=== PATIENT | female | born 1985 | race Two or more races ===

== ENCOUNTER 2023-10-27 16:53 | Inpatient (IN) | payer OTHER ==
[~2023-10-27] VITALS: Ht 152.4 cm; Wt 65.8 kg
[~2023-10-27 16:53] MED LIST: N
[2023-10-27] MEDS ORDERED: 0.9 % SODIUM CHLORIDE 1,000 ML IV STA (17:33)
[2023-10-27] MEDS ORDERED: BARIUM SULFATE 450 ML ORAL.SUSP PO ONE (17:38)
[2023-10-27] MEDS ORDERED: KETOROLAC TROMETHAMINE 30 MG VIAL ONE (17:38)
[2023-10-27] MEDS ORDERED: KETOROLAC TROMETHAMINE 30 MG VIAL IV ONE (17:45)
[2023-10-27 17:59] LABS: HEMATOCRIT 35.7 % (36.0-45.00); HEMOGLOBIN 11.6 g/dL (12.0-15.00); MEAN CELL VOLUME 81.2 fL (80.00-100.00); MEAN CORPUSCULAR HEMOGLOBIN 26.4 pg (27.00-32.0); MEAN CORPUSCULAR HGB CONC 32.5 g/dl (32.0-36.0); PLATELET COUNT 397 K/uL (150-450); RED CELL DISTRIBUTION WIDTH 13.2 % (11.5-14.5)
[2023-10-27 18:40] LABS: CALCIUM 9.3 mg/dL (8.5-10.1); CREATININE SERUM 0.64 mg/dL (0.55-1.02); GFR 102.78; POTASSIUM 3.27 mEq/L (3.5-5.1)
[2023-10-27 19:33] LABS: URINE APPEARANCE Cloudy; URINE BILIRRUBIN Negative (NEGATIVE); URINE BLOOD Trace; URINE COLOR Dark Yellow; URINE GLUCOSE Negative (NEGATIVE); URINE LEUKOCYTE Negative; URINE NITRATE Negative; URINE PROTEIN 30 (NEGATIVE)
[2023-10-27 19:36] LABS: URINE BACTERIA 5640.9 uL (0.0-1933); URINE EPITHELIAL CELLS 63.6 uL (0.0-38.8); URINE RBC 76.1 uL (0.0-20.8); URINE WBC 25.5 uL (0.0-23.2)
[2023-10-27 20:03] LABS: URINE CAST 1.06 uL (0.0-1.40); URINE KETONE >=160 (NEGATIVE)
[2023-10-27 20:04] LABS: URINE CRYSTALS FEW /HPF; URINE MUCUS HEAVY
[2023-10-27] MEDS ORDERED: PIPERACILLIN/TAZOBACTAM SODIUM 3.375 GM VIAL IV ONE ×3 (22:15→23:45)
[2023-10-27] MEDS ORDERED: MORPHINE SULFATE 4 MG/ML CARTRIDGE IV PRN (22:45)
[2023-10-27] MEDS ORDERED: ONDANSETRON HCL 4 MG in 0.9 % SODIUM CHLORIDE 50 ML IV PRN (22:45)
[2023-10-27] MEDS ORDERED: MORPHINE SULFATE 4 MG/ML CARTRIDGE IV ONE (22:45)
[2023-10-27] MEDS ORDERED: 0.9 % SODIUM CHLORIDE 1,000 ML IV SCH (22:45)
[2023-10-27] MEDS ORDERED: ACETAMINOPHEN 500 MG GEL..CAP PO PRN (22:45)
[2023-10-28] MEDS ORDERED: PIPERACILLIN/TAZOBACTAM SODIUM 3.375 GM in DEXTROSE 5 % IN WATER 100 ML IV SCH
[2023-10-28 01:05] LABS: INR 1.09; PARTIAL THROMBOPLASTIN TIME 31.2 SECONDS (22.0-34.0); PROTHROMBIN TIME 11.8 SECONDS (9.0-11.5)
[2023-10-28] MEDS ORDERED: PIPERACILLIN/TAZOBACTAM SODIUM 3.375 GM VIAL IV ONE (04:52)
[2023-10-28 08:04] VITALS: BP 101/71; O2SAT 100
[2023-10-28] MEDS ORDERED: FAMOTIDINE/PF 20 MG/2 ML VIAL ONE (08:30)
[2023-10-28] MEDS ORDERED: FAMOTIDINE/PF 20 MG in 0.9 % SODIUM CHLORIDE 8 ML IV PUSH SCH (09:00)
[2023-10-28] MEDS ORDERED: CEFAZOLIN SODIUM 1,000 MG VIAL IV ONE (12:45)
[2023-10-28] MEDS ORDERED: BUPIVACAINE HCL 30 ML VIAL IJ ONE (12:45)
[2023-10-28] MEDS ORDERED: MORPHINE SULFATE 4 MG/ML VIAL IV ONE (14:20)
[2023-10-28] MEDS ORDERED: POTASSIUM CHLORIDE 20MEQ/100ML H2O PB IV NR (15:30)
[2023-10-28 23:05] VITALS: BP 105/63; O2SAT 98
[2023-10-29 01:34] VITALS: BP 95/62
[2023-10-29 08:20] LABS: HEMATOCRIT 32.8 % (36.0-45.00); HEMOGLOBIN 10.9 g/dL (12.0-15.00); MEAN CELL VOLUME 81.6 fL (80.00-100.00); MEAN CORPUSCULAR HEMOGLOBIN 27.1 pg (27.00-32.0); MEAN CORPUSCULAR HGB CONC 33.2 g/dl (32.0-36.0); PLATELET COUNT 355 K/uL (150-450); RED BLOOD COUNT 4.02 M/uL (4.00-6.00)
[2023-10-29] MEDS ORDERED: FAMOTIDINE/PF 20 MG/2 ML VIAL ONE (08:21)
[2023-10-29 09:06] LABS: CREATININE SERUM 0.42 mg/dL (0.55-1.02); GFR 167.1; POTASSIUM 4.14 mEq/L (3.5-5.1)
[2023-10-29 10:10] VITALS: BP 117/69
== END 2023-10-29 13:43 | disposition home or self-care (01) | DRG 337 ==
LOC: ER 16:55 → MEDJ 22:37 → SEC-K 22:37 → MEDI 22:37 → MEDJ 10-28 14:29
PROVIDERS: Emergency Medicine; General Practice; ADMIT Internal Medicine; ATTEND Internal Medicine
PROC: BW21YZZ Computerized Tomography (CT Scan) of Abdomen and Pelvis using Other Contrast (ICD-10-PCS; 2023-10-27)
PROC: 0DNW4ZZ Release Peritoneum, Percutaneous Endoscopic Approach (ICD-10-PCS; principal; 2023-10-29)
PROC: 0DTJ4ZZ Resection of Appendix, Percutaneous Endoscopic Approach (ICD-10-PCS; 2023-10-29)
DX: K35.80 Unspecified acute appendicitis (principal); E87.6 Hypokalemia; N73.6 Female pelvic peritoneal adhesions (postinfective); N99.4 Postprocedural pelvic peritoneal adhesions